=== PATIENT | female | born 1980 | race Caucasian/White ===

== ENCOUNTER 2019-02-15 22:18 | Emergency (ER) | payer BC ==
--- NOTE | 2019-02-15 22:56 | RAD ---
Chest AP view INDICATION: Chest pain COMPARISON: None FINDINGS: Lungs:The lungs are clear Cardiac silhouette:The cardiomediastinal silhouette appears within normal limits. Pulmonary vasculature:Normal Pleural spaces:No pleural effusion or pneumothorax is demonstrated. Upper abdomen:No abnormality seen. Osseous structures: No acute osseous abnormality. Additional findings:None. IMPRESSION: No acute cardiopulmonary abnormality.
[2019-02-15] MEDS ORDERED: Ondansetron PF 4 MG/2 ML Vial ONE (23:06)
[2019-02-15 23:26] LABS: #Basophils 0.2 thou/uL (0.0-0.2); #Eosinphils 0.4 thou/uL (0.0-0.7); #Lymphocytes 2.8 thou/uL (1.20-3.40); #Monocytes 0.5 thou/uL (0.11-0.59); #Neutrophils 6.1 thou/uL (1.40-6.50); %Basophils 1.9 % (0.0-1.0); %Eosinophils 3.8 % (0.0-10.0); %Lymphocytes 27.7 % (21.0-51.0); %Monocytes 5.1 % (0.0-10.0); %Neutrophils 61.5 % (42.0-75.0); Mean Corpuscular HGB CONC 30.9 g/dL (32.0-36.0); Mean Corpuscular Hemoglobin 28.7 pg (27.0-31.0); Mean Platelet Volume 5.6 fL (7.4-10.4); Platelet Count 237 thou/uL (130-400); RBC Distribution Width 13.5 % (11.5-14.5); Red Blood Cell (RBC) Count 5.92 mill/uL (4.20-5.40)
[2019-02-15] MEDS ORDERED: Lidocaine Viscous Sol 2% 15 ml UD Cup ONE (23:36)
[2019-02-15] MEDS ORDERED: Mag-Al Plus 1200 MG/1200 MG/120 MG/30 ML UDCUP ONE (23:36)
[2019-02-15] MEDS ORDERED: Donnatal Elixir 16.2 MG/5 ML UDCUP ONE (23:36)
[2019-02-15 23:59] LABS: Pregnancy Test - Urine (BHCG) Negative (Negative)
[2019-02-16] LABS: Bilirubin Negative (Negative); Blood, Urine Negative (Negative); Clarity Clear (Clear); Glucose, Urine (Dipstick) Negative (Negative); Leukocyte Negative (Negative); Nitrite Negative (Negative); Pregu Control Background? CLEAR/WHITE (CLR/WHITE); Pregu Control Bar Appear? YES (CONTROL BAR); Protein, Urine (Dipstick) Negative (Neg-Trace); Urobilinogen 0.2 mg/dL (Less than 2)
[2019-02-16 00:06] LABS: ALT (SGPT) 26 U/L (8-55); AST (SGOT) 17 U/L (5-34); Albumin 3.8 g/dL (3.5-5.0); Alkaline Phosphatase 73 U/L (40-110); Anion Gap 12 mmol/L (10-20); BUN (Urea Nitrogen) 8 mg/dL (7.0-18.7); Bilirubin, Total 0.5 mg/dL (0.2-1.2); CK (CPK) 25 U/L (29-168); Calc. Creatinine Clearance 0 mL/min (70-130); Calcium 10.3 mg/dL (7.8-10.44); Carbon Dioxide 27 mmol/L (22-29); Chloride 103 mmol/L (98-107); Estimated GFR-MDRD 81; Globulin 2.2 g/dL (2.4-3.5); Glucose 114 mg/dL (70-105); Lipase 54 U/L (8-78); Potassium 3.4 mmol/L (3.5-5.1); Sodium 139 mmol/L (136-145)
[2019-02-16] MEDS ORDERED: Ketorolac Tromethamine 30 MG/ML VIAL ONE (00:20)
[2019-02-16] MEDS ORDERED: Morphine 4 MG/ML VIAL ONE (01:55)
[2019-02-16] MEDS ORDERED: Sodium Chloride 0.9% 1,000 ML ONE (01:55)
[2019-02-16] MEDS ORDERED: Sodium Chloride 0.9% 100 ML ONE (02:04)
[2019-02-16] MEDS ORDERED: Piperacillin/Tazobactam 3.375 GM VIAL ONE (02:04)
--- NOTE | 2019-02-16 08:12 | CT ---
PRELIMINARY REPORT/[facility]/EMERGENCY AFTER HOURS PROCEDURE: PROCEDURE INFORMATION: Exam: CT Abdomen And Pelvis With Contrast Exam date and time: 02/16/2019 12:43 AM Clinical history: 38 years old, female; Abdominal pain; Flank; Left upper quadrant (luq); Patient HX: Luq pain, R/O gb TECHNIQUE: Imaging protocol: Computed tomography of the abdomen and pelvis with intravenous contrast. Radiation optimization: All CT scans at this facility use at least one of these dose optimization techniques: a utomated exposure control; mA and/or kV adjustment per patient size (includes targeted exams where dose is matched to clinical indication); or iterative reconstruction. Contrast material: ISOVUE 370; Contrast volume: 96 ml; Contrast route: RT HAND; COMPARISON: No relevant prior studies available. FINDINGS: Liver: Normal. Gallbladder and bile ducts: Enlarged gallbladder, with gallbladder wall thickening, suggesting cholecystitis. No biliary dilation. No calcified gallstones. Pancreas: Normal. Spleen: Normal. Adrenals: Normal. Kidneys and ureters: Simple bilateral renal cysts. Stomach and bowel: Colonic diverticulosis. Appendix: Appendix is normal. Intraperitoneal space: Unremarkable. No free air. No significant fluid collection. Vasculature: Unremarkable. No abdominal aortic aneurysm. Lymph nodes: Unremarkable. No enlarged lymph nodes. Bladder: Unremarkable as visualized. Reproductive: 2.7 cm cystic structure within the left adnexa, likely left ovarian cyst. Uterus is mason gically absent. Bones/joints: Bilateral L5 pars defects. Soft tissues: Normal. IMPRESSION: Enlarged gallbladder, with gallbladder wall thickening, suggesting cholecystitis. No biliary dilation . No calcified gallstones. Thank you for allowing us to participate in the care of your patient. Dictated and Authenticated by: Ronald Meza MD 02/16/2019 1:30 AM Central Time ([place] & [place]) FINAL REPORT EMERGENCY AFTER HOURS CT ABDOMEN AND PELVIS WITH CONTRAST: FINDINGS/IMPRESSION: I agree with the findings and impression given in the preliminary report per [facility] physician. There is a distended gallbladder with apparent gallbladder wall thickening. This could be secondary to acute cholecystitis. A right upper quadrant abdominal ultrasound is recommended for further evaluation.
== END 2019-02-16 02:48 | disposition short-term general hospital (02) ==
LOC: MADERS 22:18
DX: K81.0 Acute cholecystitis (principal); I10 Essential (primary) hypertension; K21.9 Gastro-esophageal reflux disease without esophagitis; F32.9 Major depressive disorder, single episode, unspecified; F17.210 Nicotine dependence, cigarettes, uncomplicated; Z79.899 Other long term (current) drug therapy
CPT/HCPCS: 71045; 74177; 80053; 81003; 81025; 82150; 82550; 83690; 84484; 85025; 93005; 96365; 96375; J1885; J2270; J2405; J2543; J3490; J7050